=== PATIENT | female | born 1975 | race Caucasian/White ===

== ENCOUNTER 2019-06-23 08:10 | Emergency (ER) | payer OTHER, SELFPAY ==
--- NOTE | ~2019-06-23 | XR_ITS ---
EXAMINATION: XR foot LT min 3V DATE: 06/23/2019 08:44 INDICATION: Left foot injury. TECHNIQUE: 3 views of left foot were obtained. COMPARISON: None. FINDINGS: Bone alignment is normal. No fracture. There is mild osteoarthritis of first metatarsophala ngeal joint. IMPRESSION: 1. No fracture. Reviewed, dictated and finalized at location A. IMPRESSION: 1. No fracture.
[2019-06-23 08:22] VITALS: BP 144/80; PULSE 79; RESP 20; TEMP 37.3; O2SAT 99
--- NOTE | 2019-06-23 08:50 | ED.LOWEXIN ---
HPI - Extremity Injury (Lower) General Chief Complaint: Extremity Injury, Lower Stated Complaint: Injured toes on left foot Time Seen by Provider: 06/23/19 08:41 Source: patient and RN notes reviewed Mode of arrival: ambulatory Limitations: no limitations History of Present Illness HPI Narrative: Patient presents today complaining of an injury to the left foot. Reports she struck her fourth and fifth toes on a wooden bed frame last night. Reports numbness and tingling in the left fourth and fifth toes. Currently rates her pain 3/10 and has been taking ibuprofen and applying ice without relief.Pain increases with weightbearing or movement. MD complaint: foot injury Related Data Home Medications Medication Instructions Recorded Confirmed doxycycline hyclate 100 mg PO BID 06/23/19 06/23/19 ketoconazole 1 applic TOPICAL BID 06/23/19 06/23/19 levothyroxine 175 mcg PO DAILY 06/23/19 06/23/19 metronidazole 1 applic TOPICAL DAILY 06/23/19 06/23/19 Allergies Allergy/AdvReac Type Severity Reaction Status Date / Time codeine Allergy Unknown Rash Verified 06/23/19 08:32 Review of Systems Review of Systems: Narrative: CONSTITUTIONAL: Denies body aches, fever, chills, or sweats. EYES: Denies visual changes, redness, or discharge. ENT: Denies rhinorrhea, congestion, sore throat, or otalgia. CARDIOVASCULAR: Denies chest pain, palpitations, or edema. RESPIRATORY: Denies cough or dyspnea. GASTROINTESTINAL: Denies abdominal pain, nausea, vomiting, or diarrhea. GENITOURINARY: Denies dysuria or hematuria. SKIN: Denies rash, itching, or wounds. MUSCULOSKELETAL: Denies back pain, or myalgia.+Left foot injury NEUROLOGIC: Denies headache, numbness, tingling, or weakness.+Numbness in the left fourth and fifth toes PSYCH: Denies depression or anxiety. [facility] Past Medical History Medical History (Updated 06/23/19 @ 08:59 by Jihan Gay, RF TEST TECHNICIAN, ) Rosacea Surgical History Surgical History (Updated 06/23/19 @ 08:55 by Jihan Gay, RF TEST TECHNICIAN, ) H/O tubal ligation Comments At time of signature, I have reviewed and agree with nursing past medical, surgical, social and family history unless otherwise noted. Please see nursing chart for further information. There is no relevant family history pertinent to the presenting complaint Exam Narrative: Exam Narrative: GENERAL: Well-appearing, well-nourished, and in no acute distress. HEAD: Normocephalic, atraumatic. EYES: EOMI. No redness or drainage. Conjunctivae normal. ENT: Mucous membranes pink and moist. NECK: Normal AROM. CHEST: No respiratory distress. EXTREMITIES: Normal range of motion. No edema.Tenderness to the base of the left fourth and fifth toes without edema, ecchymosis, erythema, or deformity.Distal sensation intact. Capillary refill normal. Pedal pulse normal.Decreased AROM of the affected toes due to pain. SKIN: Warm, dry, no rash. Capillary refill normal. Normal skin turgor. NEURO: No focal deficits. Alert and oriented x3. Gait steady. PSYCH: Normal affect. No signs of depression or anxiety. Course Vital Signs Vital signs: Vital Signs Temperature 99.2 F 06/23/19 08:22 Pulse Rate 79 06/23/19 08:22 Respiratory Rate 20 06/23/19 08:22 Blood Pressure 144/80 H 06/23/19 08:22 Pulse Oximetry 99 06/23/19 08:22 Temperature 99.2 F 06/23/19 08:22 Pulse Rate 79 06/23/19 08:22 Respiratory Rate 20 06/23/19 08:22 Blood Pressure 144/80 H 06/23/19 08:22 Pulse Oximetry 99 06/23/19 08:22 Reviewed. Pt has been instructed to follow up with her PCP regarding her elevated blood pressure today. MDM - Extremity Injury (Lower) Differential Diagnosis Differential diagnosis: Likely other (Toe fracture, foot fracture, toe sprain, foot sprain, contusion) Imaging Data Radiologist's impression: ITS Impressions Foot X-Ray 06/23/19 08:47 IMPRESSION: 1. No fracture. Critical Care Time Critical Care Time Critical Care Ti
== END 2019-06-23 09:00 | disposition home or self-care (01) ==
PROVIDERS: Emergency Provider Nurse Practitioner; PCP Family Medicine
DX: S93.602A Unspecified sprain of left foot, initial encounter (principal); W22.8XXA Striking against or struck by other objects, initial encounter
CPT/HCPCS: 73630; 99213; G0463